=== PATIENT | male | born 2000 | race Caucasian/White ===

== ENCOUNTER 2018-03-16 15:15 | Emergency (ER) | payer BC ==
[~2018-03-16] VITALS: Ht 188 cm; Wt 72.6 kg
[2018-03-16 15:21] VITALS: BP_SYST 117
[2018-03-16 16:28] VITALS: BP_SYST 112
== END 2018-03-16 16:28 | disposition home or self-care (01) ==
LOC: SED 15:15
DX: M25.522 Pain in left elbow (principal); V00.131A Fall from skateboard, initial encounter; Y93.51 Activity, roller skating (inline) and skateboarding; Y92.89 Other specified places as the place of occurrence of the external cause; Y99.8 Other external cause status; Z88.2 Allergy status to sulfonamides
CPT/HCPCS: 99284

== ENCOUNTER 2018-12-01 06:10 | Emergency (ER) | payer BC ==
[~2018-12-01] VITALS: Ht 188 cm; Wt 68.0 kg
[2018-12-01 06:15] VITALS: BP_SYST 114
--- NOTE | 2018-12-01 06:20 | NUR ---
Pt states that he woke up this AM with vomiting, chills, body aches, throat pain, nausea and vomiting x 3-5 episodes ongoing sinch Sunday. Pt states that he saw his PMD this past Sunday r/t Temp 103 and was Rx Antibiotics, Throat Gargle, and Motrin.
--- NOTE | 2018-12-01 06:20 | NUR ---
Patient to ER bed 6 to gown for evaluation. Side rails up. Report given to Santiago OWUSU.
--- NOTE | 2018-12-01 06:35 | NUR ---
Dr. Montez at bedside to assess pt.
[2018-12-01] MEDS ORDERED: KETOROLAC TROMETHAMINE 30 MG VIAL IVP ONE (06:45)
[2018-12-01] MEDS ORDERED: ONDANSETRON HCL 4 MG/2 ML VIAL IVP ONE (06:45)
[2018-12-01] MEDS ORDERED: NACL 0.9% 1,000 ML IV ONE (06:45)
--- NOTE | 2018-12-01 06:55 | NUR ---
Throat specimen collected for Strep. Bilateral tonsils are red and inflammed with white exudate noted. Airway patent.
--- NOTE | 2018-12-01 07:14 | NUR ---
Pt voices concerns regarding his water intake and urinary output. Pt states that he drinks a lot of water but his urine never clears. Pt provides urine specimen, dark yellow colored and clear. Dr. Montez notified and urine dip ordered.
--- NOTE | 2018-12-01 07:15 | NUR ---
Report from Mika OWUSU
[2018-12-01 07:18] LABS: STREPTOCOCCUS A SCREEN (RAPID) NEGATIVE (NEGATIVE)
[2018-12-01] MEDS ORDERED: DEXAMETHASONE SOD PHOSPHATE 10 MG/ML VIAL IVP ONE (07:30)
[2018-12-01 07:35] LABS: MONOTEST NEGATIVE (NEGATIVE)
--- NOTE | 2018-12-01 08:00 | NUR ---
Patient given written and verbal discharge instructions and verbalizes understanding. ER MD discussed with patient the results and treatment provided. Patient in stable condition. ID arm band removed. IV catheter removed intact and dressing applied, no active bleeding. Rx of Zofran given. Patient educated on pain management and to follow up with PMD. Pain Scale 0/10. Opportunity for questions provided and answered. Medication side effect fact sheet provided.
[2018-12-01 08:05] VITALS: BP_SYST 114
== END 2018-12-01 08:00 | disposition home or self-care (01) ==
LOC: SED 06:10
DX: J02.9 Acute pharyngitis, unspecified (principal); M79.10 Myalgia, unspecified site; R50.9 Fever, unspecified; Z88.2 Allergy status to sulfonamides
CPT/HCPCS: 36415; 81002; 86308; 86403; 87081; 96361; 96374; 96375; 99283; J1100; J1885; J2405; J7030